=== PATIENT | female | born 1990 | race Caucasian/White ===

== ENCOUNTER 2016-05-28 17:13 | Day surgery (SDC) | payer OTHER | END 2016-05-28 20:05 | disposition short-term general hospital (02) | LOC: SURGOP 17:13 | PROC: 10D17ZZ Extraction of Products of Conception, Retained, Via Natural or Artificial Opening (ICD-10-PCS; principal; 2016-05-28) | DX: O02.1 Missed abortion (principal); Z98.890 Other specified postprocedural states | CPT/HCPCS: J0131; J0690; J2250; J2405; J2765; J3010; J3490 ==